=== PATIENT | male | born 1960 | race Caucasian/White ===

== ENCOUNTER 2017-08-13 07:07 | Day surgery (SDC) | payer OTHER ==
[~2017-08-13] VITALS: Ht 182.9 cm; Wt 98.0 kg
[~2017-08-13 07:07] MED LIST: CEPH500; CEPH500 PO; CODACE30 PO; CYCL10 PO; FINA5; HYDACE10B PO; HYDACE5 PO; IBUHYD PO; INDO50 PO; LISHYD1012 PO; LISHYD2012 PO; METO25ER PO; METO50ER PO; NAPR550 PO; OXYC10TA19; QUET100; TAMS.4ER PO; VERA120ERB PO; ZOLP10 PO
[2018-04-27] MEDS ORDERED: ALLO100 (06:39)
== END 2017-08-13 09:31 | disposition home or self-care (01) ==
LOC: ORSCSDS 07:07
PROVIDERS: Internal Medicine Gastroenterology
PROC: 0DBL8ZX Excision of Transverse Colon, Via Natural or Artificial Opening Endoscopic, Diagnostic (ICD-10-PCS; principal; 2017-08-13 08:30)
PROC: 0DBM8ZX Excision of Descending Colon, Via Natural or Artificial Opening Endoscopic, Diagnostic (ICD-10-PCS; principal; 2017-08-13 08:30)
DX: Z12.11 Encounter for screening for malignant neoplasm of colon (principal); Z86.010 Personal history of colon polyps; D12.3 Benign neoplasm of transverse colon; D12.4 Benign neoplasm of descending colon; I10 Essential (primary) hypertension; B19.20 Unspecified viral hepatitis C without hepatic coma; Z87.891 Personal history of nicotine dependence; Z79.899 Other long term (current) drug therapy
CPT/HCPCS: 88305; J7120

== ENCOUNTER → 2020-03-17 | Outpatient (CLI) | payer OTHER ==
[~2020-03-17] MED LIST changes: +ALLO100
[2020-03-20 10:08] LABS: HEPATITIS C QUANTITATION HCV Not Detected IU/mL (.)
== END ==
LOC: LAB 14:02 → LAB SHORT 14:02
PROVIDERS: Internal Medicine Infectious Disease
DX: B18.2 Chronic viral hepatitis C (principal); I10 Essential (primary) hypertension
CPT/HCPCS: 87522

== ENCOUNTER 2020-08-18 07:42 | Day surgery (SDC) | payer OTHER ==
[~2020-08-18] VITALS: Ht 182.9 cm; Wt 105.8 kg
[~2020-08-18 07:42] MED LIST changes: -ALLO100; +ALLO100 PO; +FINA5 PO
--- NOTE | 2020-08-18 08:16 | NUR ---
08/18/20 0816 Denisa Emanuel 1ST I.V. ATTEMPT IN RIGHT HAND 2ND I.V. ATTEMPT IN RIGHT AC
--- NOTE | 2020-08-18 09:23 | NUR ---
08/18/20 0923 Divya Appiah 4 1/2 CC TATTOO INK INJECTED INTO TRANSVERSE COLON 3CC NS INJECTED INTO TRANSVERSE COLON
[2020-11-02] MEDS ORDERED: CYCL10 PO (13:14)
[2020-11-02] MEDS ORDERED: OXYC10ER PO (13:15)
[2020-11-02] MEDS ORDERED: Lisinopril-Hct1 EAC4 PO (13:15)
== END 2020-08-18 09:45 | disposition home or self-care (01) ==
LOC: ORSCSDS 07:42
PROVIDERS: Internal Medicine Gastroenterology
PROC: 0DBM8ZX Excision of Descending Colon, Via Natural or Artificial Opening Endoscopic, Diagnostic (ICD-10-PCS; principal; 2020-08-18 09:15)
PROC: 0DBL8ZX Excision of Transverse Colon, Via Natural or Artificial Opening Endoscopic, Diagnostic (ICD-10-PCS; principal; 2020-08-18 09:15)
PROC: 3E0H8KZ Introduction of Other Diagnostic Substance into Lower GI, Via Natural or Artificial Opening Endoscopic (ICD-10-PCS; principal; 2020-08-18 09:15)
DX: Z12.11 Encounter for screening for malignant neoplasm of colon (principal); Z86.010 Personal history of colon polyps; D12.3 Benign neoplasm of transverse colon; D12.4 Benign neoplasm of descending colon; K57.30 Diverticulosis of large intestine without perforation or abscess without bleeding; K64.8 Other hemorrhoids; E66.9 Obesity, unspecified; Z68.32 Body mass index [BMI] 32.0-32.9, adult; Z87.891 Personal history of nicotine dependence; Z79.899 Other long term (current) drug therapy
CPT/HCPCS: 88305; J2704; J7120

== ENCOUNTER 2020-11-08 06:06 | Inpatient (IN) | payer OTHER, MEDICARE ==
[~2020-11-08] VITALS: Ht 182.9 cm; Wt 106.8 kg
[~2020-11-08 06:06] MED LIST changes: +Lisinopril-Hct1 EAC4 PO; +OXYC10ER PO
--- NOTE | 2020-11-08 08:11 | NUR ---
ASSUMED CARE AND REPORT FROM CLOVER SWANN RN. PATIENT AWAKE AND ORIENTED AND DENIES ANY COMPLAINTS OR NEEDS.
--- NOTE | 2020-11-08 16:30 | NUR ---
PT ARRIVED TO ROOM 230 VIA GURNEY FROM PACU S/P ROBOTIC COLECTOMY PT HAS SCANT AMT OF BLEEDING TO ABD BINDER FROM LAP SITE DR ALBA BY TO SEE PT PLACED DRESSING X4 GAUZE AND OPSITE PT RATES ABD PAIN 8/10 TO LOWER ABD AT THE HAND SITE TRANVERSE WITH SMALL DRESSING C/D/I WILL START FENT MANAGER CHILD PER ORDER
[2020-11-08 17:01] LABS: BASOPHILS ABSOLUTE AUTO 0.02 K/mm3 (0.00-0.23); BASOPHILS PERCENT AUTO 0 % (0-2); EOSINOPHILS PERCENT AUTO 0 % (0-6); Hematocrit 40.8 % (37.0-53.0); Hemoglobin 14.2 g/dL (13.5-17.5); IMMATURE GRAN ABSOLUTE AUTO 0.08 K/mm3 (0.00-0.10); IMMATURE GRAN PERCENT AUTO 1 % (0-1); LYMPHOCYTES PERCENT AUTO 5 % (21-46); MONOCYTES ABSOLUTE AUTO 0.48 K/mm3 (0.16-1.47); MONOCYTES PERCENT AUTO 3 % (4-13); Mean Corpuscular HGB 31.2 pg (26.0-34.0); Mean Corpuscular HGB Conc 34.8 g/dL (31.5-36.5); Mean Corpuscular Volume 90 fL (80-100); Mean Platelet Volume 9.5 fL (9.1-12.4); NEUTROPHILS PERCENT AUTO 91 % (41-73); Platelet Count 320 K/mm3 (150-400); RDW Coefficient Variation 13.2 % (11.7-14.2); RDW Standard Deviation 43.6 fL (35.1-46.3); Red Blood Cell Count 4.55 M/mm3 (4.30-5.90); White Blood Cell Count 16.58 K/mm3 (4.00-11.30)
--- NOTE | 2020-11-08 17:51 | NUR ---
PT ARRIVED TO UNIT FROM PACU LIDAR TECHNICIAN SET UP AND PT REPORTS PAIN NOW MORE TOLERABLE. VSS. BT HYPO X4. LUNGS CLEAR W/DIM BASES. 02 SATS STABLE ON 3LNC. DRESSINGS TO ABD CDI. CALL LIGHT AND LIDAR TECHNICIAN IN REACH.
[2020-11-09 05:08] LABS: BASOPHILS ABSOLUTE AUTO 0.01 K/mm3 (0.00-0.23); BASOPHILS PERCENT AUTO 0 % (0-2); EOSINOPHILS ABSOLUTE AUTO 0.01 K/mm3 (0.00-0.68); EOSINOPHILS PERCENT AUTO 0 % (0-6); Hematocrit 42.1 % (37.0-53.0); Hemoglobin 14.5 g/dL (13.5-17.5); IMMATURE GRAN ABSOLUTE AUTO 0.04 K/mm3 (0.00-0.10); IMMATURE GRAN PERCENT AUTO 0 % (0-1); LYMPHOCYTES ABSOLUTE AUTO 2.59 K/mm3 (0.84-5.20); LYMPHOCYTES PERCENT AUTO 19 % (21-46); MONOCYTES PERCENT AUTO 8 % (4-13); Mean Corpuscular HGB 31.3 pg (26.0-34.0); Mean Corpuscular HGB Conc 34.4 g/dL (31.5-36.5); Mean Corpuscular Volume 91 fL (80-100); Mean Platelet Volume 9.5 fL (9.1-12.4); NEUTROPHILS PERCENT AUTO 73 % (41-73); Platelet Count 329 K/mm3 (150-400); RDW Coefficient Variation 13.2 % (11.7-14.2); RDW Standard Deviation 43.8 fL (35.1-46.3); Red Blood Cell Count 4.64 M/mm3 (4.30-5.90); White Blood Cell Count 13.95 K/mm3 (4.00-11.30)
[2020-11-09 05:28] LABS: Anion Gap 4 mmol/L (6-16); Blood Urea Nitrogen 14 mg/dL (8-24); Bun/Creatinine Ratio 15.4 (12.0-20.0); CO2, Blood 29 mmol/L (21-32); Calcium, Blood 8.6 mg/dL (8.5-10.1); Chloride, Blood 106 mmol/L (98-108); Creatinine, Blood 0.91 mg/dL (0.60-1.20); Glomerular Filtration Rate >60 (60-); Glucose, Blood 113 mg/dL (70-99); Potassium, Blood 3.3 mmol/L (3.5-5.5); Sodium, Blood 139 mmol/L (136-145)
--- NOTE | 2020-11-09 06:27 | NUR ---
SUMMARY PT UP TO CHAIR THIS AM. TOLERATED WELL. PT WITH MULTIPLE QUESTIONS TONIGHT REGARDING SPECIFICS ABOUT POSSIBLE DATE OF DISCHARGE,WHEN DIET WILL BE ADVANCED,ETC.I DISCUSSED REASONING FOR SLOW DIET AND MY INABILITY TO PREDICT DISCHARGE.I ADVISED PT HE WILL NEED TO SPEAK SPECIFICALLY WITH DOCTOR REGARDING THESE TYPES OF QUESTIONS.PT AGREES TO THIS.PT RECEIVING CONT MODE PER TRANSITIONS MANAGER AND ALSO USING BOLUS DOSING PRN. NO FLATUS YET.NO C/O NAUSEA.
--- NOTE | 2020-11-09 17:34 | NUR ---
SHIFT SUMMARY A&OX4, POD1 ROBOTIC ASSISTED LAP R COLECTOMY, PAIN CONTROLLED PER EMAR ORDERS. VSS. DENIES N/V. 4 LAP SITES TO L ABDOMEN W/ STERI STRIPS AND OPEN TO AIR, SURGICAL INCISION TO LOWER ABDOMEN W/ GAUZE AND ADHESEIVE DRESSING, ALL C/D/I. ABDOMINAL BINDER IN PLACE.PT TOLERATING CLEAR LIQUID DIET. HAS NOT PASSED FLATUS OR HAD BM. PT HAS BEEN COUGHING UP SOME PHLEGM, INSTRUCTED PT TO SPLINT ABDOMEN WHEN COUGHING AND ENCOURAGED USE OF INCENTIVE SPIROMETER. PT INDEPENDTLY AMBULATES FREQUENTLY. PT UP IN CHAIR EATING CLEAR LIQUID DINNER, CALL LIGHT WITHIN REACH. WILL REPORT TO ONCOMING RN.
--- NOTE | 2020-11-09 20:09 | NUR ---
WHILE I WAS IN WITH ANOTHER PT, THIS PT REQUESTED PAIN MEDS AND WANTING TO SLEEP. MICRO COMPUTER SPECIALIST REQUESTED LAST WAXER TO ADMINISTER MEDS.
--- NOTE | 2020-11-09 21:14 | NUR ---
PT APPEARING SLEEPING AFTER PAIN MEDS.HAD BEEN TOLERATING CLR LIQ PO AND HAD VOIDED.
--- NOTE | 2020-11-10 00:13 | NUR ---
PT AWAKE AND WANTING PAIN MEDS.WHILE I WAS SCANNING MEDS,I WAS ATTEMPTING TO COMPLETE PAIN ASSESSMENT,BUT WHEN I ASKED QUESTIONS REGARDING PAIN LEVEL AND LOCATION OF PAIN, PT BEGAIN RAISING HIS VOICE AND CURSING AT ME TELLING ME IT WAS "BULLSHIT" THAT I DID NOT NEED TO ASK QUESTIONS.THAT HE JUST WANTED TO GO BACK TO SLEEP.I ATTEMPTED TO EXPLAIN REAON FOR ASSESS AND PT CONTINUED SAME. REPORTING CONSULTANT HEARD AND ARRIVED AT ROOM AND AGREED TO ASSUME CARE.
--- NOTE | 2020-11-10 00:30 | NUR ---
ASSUMED CARE OF PT AT THIS TIME, WILL MONITOR AND TX PER ORDERS.
--- NOTE | 2020-11-10 05:57 | NUR ---
POD 2 S/P RAKESH COLECTOMY. PT VSS T/O NIGHT. INCISIONS CDI. PAIN MGD W/2 OXCODONE PER EMAR. PT JOSE ALEJANDRO CL PO, HAD NO C/O N/V, IS NOT PASSING FLATUS YET. PT AMB INDEP IN HALLS SEVERAL TIMES DURING NIGHT.
--- NOTE | 2020-11-10 16:57 | NUR ---
SHIFT SUMMARY A&OX4, POD2 R COLECTOMY, PAIN MANAGED PER EMAR ORDERS. PT HAS ADVANCED TO A FULL LIQUID DIET, TOLERATING IT WELL. DENIES N/V, HAS NOT PASSED FLATUS OR HAD A BM. ACTIVE BOWEL TONES. PT REPORTS BEING ABLE TO HEAR THEM HIMSELF. PT HAS BEEN INDEPENDENTLY AMBULATING FREQUENTLY THROUGH HALLS TOLERATED. 4 LAP SITES W/ STERI STRIPS, OPEN TO AIR, C/D/I. INCISION TO LOWER ABD DRESSING CHANGED TODAY, GAUZE AND ADHESIVE APPLIED, C/D/I. VSS. PT REPORTED OCCASIONAL PRODUCTIVE COUGH, PT BEEN USING PILLOW TO SPLINT ABD WHILE COUGHING, LUNG SOUNDS CLEAR.PT URINE ON THE DARKER SIDE, INSTRUCTED PT TO INCREASE PO INTAKE OF WATER AND DRINK LESS COFFEE. PT UP IN CHAIR, CALL LIGHT WITHIN REACH. MICHAEL REPORT TO ONCOMING RN.
--- NOTE | 2020-11-10 22:04 | NUR ---
ASSUMED CARE AT 1900. PT A/O X4, IND IN ROOM. PT REQUESTING PAIN MEDICATIONS; ADMINISTERED AT 1999 PER ORDERS. PT C/O TENDERNESS AT IV SITE L FA; SITE NOTED TO BE REDDENED, SLIGHTLY SWOLLEN AND NOT ABLE TO FLUSH. IV DC'D. PT DECLINING NEW IV AT THIS TIME. PT AMBULATED IN HALLWAY IND. PT NOW RESTING IN BED. CALL LIGHT IN REACH.
--- NOTE | 2020-11-11 03:55 | NUR ---
SHIFT SUMMARY PT IS A/O X4, IND IN ROOM. AMBULATING HALLWAYS IND. TOLERATING FULL LIQUID DIET W/O NAUSEA. LAP SITES X4 CDI, LOWER ABD DRESSING CDI. PT USING ABD BINDER FOR COMFORT. PAIN MANAGED WITH OXY X2 Q4. PT DENIES FLATUS AND BM'S OVERNIGHT. NO ACUTE CHANGES THIS SHIFT. PT UP TO CHAIR AT THIS TIME DRINKING COFFEE. CALL LIGHT IN REACH.
--- NOTE | 2020-11-11 09:10 | NUR ---
PT DISCHARGED THE PT VERBALIZED UNDERSTANDING OF THE DC INSTRUCTIONS GIVEN BY REAL ESTATE ACCOUNTANT SAMI, THE WAS WAS GIVEN INSTRUCTION ON WIUND CARE BY DR. ALBA PRIOR TO DC, THE PT APPEARED TO BE BREATHING EASILY ON RA, THE PT DECLINED A WHEELCHAIR AND AMBULATED OUT STEADY ON HIS FEET
== END 2020-11-11 09:01 | disposition home or self-care (01) | DRG 331 ==
LOC: SURS 06:06 → PRE IP 07:30 → SURS 16:26
PROVIDERS: ADMIT Surgery
PROC: 8E0W4CZ Robotic Assisted Procedure of Trunk Region, Percutaneous Endoscopic Approach (ICD-10-PCS; 2020-11-08)
PROC: 0DTF4ZZ Resection of Right Large Intestine, Percutaneous Endoscopic Approach (ICD-10-PCS; principal; 2020-11-08 08:45)
DX: D12.3 Benign neoplasm of transverse colon (principal); M19.90 Unspecified osteoarthritis, unspecified site; G89.29 Other chronic pain; Z96.641 Presence of right artificial hip joint; I10 Essential (primary) hypertension; M10.9 Gout, unspecified; Z86.19 Personal history of other infectious and parasitic diseases; Z98.890 Other specified postprocedural states; Z87.891 Personal history of nicotine dependence
CPT/HCPCS: 36415; 80048; 85025; 88307; 94762; A9270; J0461; J0690; J1100; J1650; J1885; J2250; J2370; J2405; J2704; J2710; J3010; J7120

== ENCOUNTER 2022-07-22 04:42 | Emergency (ER) | payer OTHER ==
[~2022-07-22] VITALS: Ht 182.9 cm; Wt 106.6 kg
== END 2022-07-22 06:35 | disposition home or self-care (01) ==
LOC: ER 04:42
DX: T18.9XXA Foreign body of alimentary tract, part unspecified, initial encounter (principal); X58.XXXA Exposure to other specified factors, initial encounter; I10 Essential (primary) hypertension
CPT/HCPCS: 99283